=== PATIENT | female | born 1955 | race Two or more races ===

== ENCOUNTER → 2023-12-03 | Day surgery (SDC) | payer OTHER, MEDICAID ==
[2023-11-30 13:09] LABS: Basophils # (auto) 0 10 ^3/uL (0-0.2); Eosinophils # (auto) 0.1 10 ^3/uL (0-0.8); Eosinophils % (auto) 2.7 % (0.0-7.0); Hematocrit 41.3 % (36.0-46.0); Hemoglobin 14.3 g/dL (12.2-16.2); Lymphocytes # (auto) 1.8 10 ^3/uL (0.4-5.4); Lymphocytes % (auto) 39.7 % (10.0-50.0); Mean Corpuscular Hemoglobin 30.9 pg (28.0-32.0); Mean Corpuscular Hgb Conc. 34.6 g/dL (32.0-36.0); Mean Corpuscular Volume 89.1 fL (80.0-100.0); Monocytes # (auto) 0.4 10 ^3/uL (0-1.3); Monocytes % (auto) 9.1 % (0.0-12.0); Neutrophils # (auto) 2.2 10 ^3/uL (1.6-8.6); Neutrophils % (auto) 47.5 % (37.0-80.0); Nucleated Red Blood Cells % 0.1 %; Red Blood Cells 4.63 10^6/uL (4.0-5.20); Red Cell Distribution Width 12.7 % (11.8-14.3); White Blood Cell 4.6 10^3/uL (4.4-10.8)
[2023-11-30 13:26] LABS: Partial Thromboplastin Time 30.5 SEC (24.5-34.5); Prothrombin Time 10.6 sec (9.3-11.8)
[2023-11-30 13:38] LABS: Urine Amorphous Crystal FEW /hpf (None Seen); Urine Bacteria FEW /hpf (None Seen); Urine Blood Negative /uL (Negative); Urine Clarity Turbid (Clear); Urine Protein, UAD Negative (Negative); Urine Specific Gravity 1.009 (1.001-1.035); Urine Urobilinogen Normal (Negative); Urine WBC 6 /hpf (0 - 5)
[2023-11-30 13:46] LABS: Urine Color STRAW (Yellow)
[2023-11-30 14:04] LABS: Alanine Aminotransferase 18 U/L (7-40); Alkaline Phosphatase 91 U/L (46-116); Anion Gap 9 (5-15); Calcium 9.6 mg/dL (8.5-10.1); Carbon Dioxide 24 mmol/L (20-30); Chloride 106 mmol/L (98-107); Sodium 139 mmol/L (136-145)
[2023-11-30 14:05] LABS: BUN/Creatinine Ratio 16.9 (10.0-20.0); Blood Urea Nitrogen 11 mg/dL (9-23); Glucose 99 mg/dL (74-106)
[2023-11-30 14:07] LABS: Albumin 4.4 g/dL (3.2-4.8); Aspartate Aminotransferase 18 U/L (13-40); Bilirubin, Total 0.6 mg/dL (0.2-1.0)
[~2023-12-03] VITALS: Ht 160 cm; Wt 63.5 kg
[~2023-12-03] MED LIST: ASPI81CH59 PO; LEVO100T69 PO; OMEP20TA PO; ONDANSETRON HCL 4 MG/2 ML VIAL IV ONE; ePHEDrine SULFATE 50 MG/ML AMP ONE; fentaNYL CITRATE 100 MCG/2 ML VL ONE
[2023-12-03 11:41] VITALS: TEMP 97.7; O2SAT 96
[2023-12-03 12:35] VITALS: BP 123/81; PULSE 78; RESP 15
== END | disposition home or self-care (01) ==
LOC: GI 09:29
PROVIDERS: ATTEND Internal Medicine Gastroenterology
DX: Z12.11 Encounter for screening for malignant neoplasm of colon (principal); D12.3 Benign neoplasm of transverse colon; K29.50 Unspecified chronic gastritis without bleeding; R12 Heartburn; K44.9 Diaphragmatic hernia without obstruction or gangrene; K21.9 Gastro-esophageal reflux disease without esophagitis; E03.9 Hypothyroidism, unspecified; G47.33 Obstructive sleep apnea (adult) (pediatric); Q33.9 Congenital malformation of lung, unspecified; Z79.82 Long term (current) use of aspirin; Z79.890 Hormone replacement therapy; Z79.899 Other long term (current) drug therapy; Z86.010 Personal history of colon polyps; Z98.890 Other specified postprocedural states
CPT/HCPCS: 36415; 43239; 45380; 71045; 80053; 81001; 85025; 85610; 85730; 88305; 88312; 88342; J3010; J7030